=== PATIENT | male | born 1995 | race Caucasian/White ===

== ENCOUNTER 2016-03-21 19:32 | Emergency (ER) | payer OTHER ==
[2016-03-21 20:31] VITALS: BP 130/70
[2016-03-21] MEDS ORDERED: Oseltamivir CAP* 75 MG PO ONE (20:53)
--- NOTE | 2016-03-21 20:53 | UC ---
FLU HPI - HPI Summary HPI Summary: sx started 03/19/16--headaches, body aches, chills, fever, cough [ End ] - History of Current Complaint Chief Complaint: UCGeneralIllness Stated Complaint: ST,COUGH,CHILLS Time Seen by Provider: 03/21/16 20:46 Hx Obtained From: Patient Onset/Duration: Sudden Onset, Gradual Onset Severity Currently: Mild Severity Initially: Moderate - Allergy/Home Medications Allergies/Adverse Reactions: Allergies Allergy/AdvReac Type Severity Reaction Status Date / Time No Known Allergies Allergy Verified 03/21/16 20:30 Home Medications: Home Medications NK [No Home Medications Reported] 03/21/16 [History Confirmed 03/21/16] PMH/Surg Hx/FS Hx/Imm Hx Previously Healthy: Yes Endocrine History Of: Denies: Diabetes Cardiovascular History Of: Denies: Cardiac Disorders Respiratory History Of: Denies: COPD GI/ History Of: Denies: Gastroesophageal Reflux Neurological History Of: Denies: TIA Psychological History Of: Denies: Anxiety - Surgical History Surgical History: None - Family History Known Family History: Positive: Diabetes - Social History Alcohol Use: Rare Substance Use Type: None Smoking Status (MU): Never Smoked Tobacco Have You Smoked in the Last Year: No - Immunization History Most Recent Influenza Vaccination: no Review of Systems Constitutional: Fever, Chills, Fatigue Skin: Negative Eyes: Negative ENT: Nasal Discharge Respiratory: Negative Cardiovascular: Negative Gastrointestinal: Negative Genitourinary: Negative Motor: Negative Neurovascular: Negative Musculoskeletal: Myalgia Neurological: Negative Psychological: Negative All Other Systems Reviewed And Are Negative: Yes Physical Exam Triage Information Reviewed: Yes Appearance: Well-Appearing, No Pain Distress, Well-Nourished Vital Signs: Initial Vital Signs Temp 101.5 F 03/21/16 20:26 Pulse 90 03/21/16 20:26 Resp 17 03/21/16 20:26 BP 130/70 03/21/16 20:26 Pulse Ox 98 03/21/16 20:26 Eye Exam: Normal ENT Exam: Normal Dental Exam: Normal Dental: Positive: Cervical Lymphadenopathy - bilateral anterior cervical Neck exam: Normal Neck: Positive: 1 Respiratory Exam: Normal Cardiovascular Exam: Normal Abdominal Exam: Normal Musculoskeletal Exam: Normal Neurological Exam: Normal Psychological Exam: Normal Skin Exam: Normal Flu Course/Dx - Course Course Of Treatment: He desires to start tamiflu at this time based on his S/S he will be treated for the flu. - Differential Dx/Diagnosis Provider Diagnoses: Influenza Discharge - Discharge Plan Condition: Good Disposition: HOME Patient Education Materials: Influenza (ED) Referrals: Non Staff,Doctor [Primary Care Provider] - If Needed
== END 2016-03-21 21:00 | disposition home or self-care (01) ==
LOC: UCCORT 19:32
DX: J11.1 Influenza due to unidentified influenza virus with other respiratory manifestations (principal)
CPT/HCPCS: 99212; A9270-GY; G0463